=== PATIENT | male | born 1945 | race Two or more races ===

== ENCOUNTER 2020-03-06 13:53 | Outpatient (CLI) | payer OTHER ==
[2020-03-06] MEDS ORDERED: DEXAMETHAS10 MG/1 M1 OTIC (14:36)
[2020-03-06] MEDS ORDERED: PREDNISONE10 M2 PO (14:38)
== END 2020-03-06 19:18 | disposition home or self-care (01) ==
LOC: OFIC 805 13:53
PROVIDERS: ATTEND Otolaryngology Otology & Neurotology
DX: H93.12 Tinnitus, left ear (principal); H91.22 Sudden idiopathic hearing loss, left ear; H69.82 Other specified disorders of Eustachian tube, left ear

== ENCOUNTER 2020-03-31 09:51 | Outpatient (CLI) | payer OTHER ==
[~2020-03-31 09:51] MED LIST: DEXAMETHAS10 MG/1 M1 OTIC; PREDNISONE10 M2 PO
== END 2020-03-31 16:51 | disposition home or self-care (01) ==
LOC: OFIC 805 09:51
PROVIDERS: ATTEND Otolaryngology Otology & Neurotology
DX: H93.12 Tinnitus, left ear (principal); H91.22 Sudden idiopathic hearing loss, left ear; H69.82 Other specified disorders of Eustachian tube, left ear